=== PATIENT | male | born 1950 | race Caucasian/White ===

== ENCOUNTER 2022-02-09 17:09 | Observation (INO) | payer MEDICARE ==
[2022-02-09] MEDS ORDERED: Dextrose 5%/Water IV Soln. 1000 ML 1,000 ML IV SCH (17:30)
[2022-02-09 18:53] LABS: CHLORIDE 100 mmol/L (98-107); Carbon Dioxide 23 mmol/L (22-30); Potassium 3.9 mmol/L (3.5-5.1)
[2022-02-09 19:27] LABS: INFLUENZA A NEGATIVE (NEGATIVE); INFLUENZA B NEGATIVE (NEGATIVE); RESPIRATORY SYNCTIAL VIRUS NEGATIVE (Negative); SARS-CoV-2 Xpert Express NEGATIVE (NEGATIVE)
[2022-02-09 19:31] LABS: ANION GAP 13.7 MEQ/L (5-15); BLOOD UREA NITROGEN 19 mg/dL (9-20); Calcium 8.8 mg/dL (8.4-10.2); Creatinine 1 0.77 mg/dL (0.66-1.25); EST GLOMERULAR FILTRATION RATE > 60.0 ML/MIN; Glucose 211 mg/dL (74-106)
[2022-02-09 19:39] LABS: SODIUM 132 mmol/L (137-145)
[2022-02-09 22:14] LABS: POTASSIUM, URINE RANDOM 13.1 mmol/L
[2022-02-09] MEDS: HUMALOG SQ PRN (22:54)
[2022-02-09] MEDS: Neurontin PO SCH (22:55)
[2022-02-09] MEDS: Flomax 0.4 MG PO SCH (22:55)
[2022-02-10 01:53] LABS: ANION GAP 11.8 MEQ/L (5-15); BLOOD UREA NITROGEN 17 mg/dL (9-20); CHLORIDE 102 mmol/L (98-107); Calcium 8.8 mg/dL (8.4-10.2); Carbon Dioxide 25 mmol/L (22-30); Creatinine 1 0.77 mg/dL (0.66-1.25); EST GLOMERULAR FILTRATION RATE > 60.0 ML/MIN; Glucose 147 mg/dL (74-106); Potassium 3.8 mmol/L (3.5-5.1); SODIUM 135 mmol/L (137-145)
[2022-02-10 05:45] LABS: Absolute Neutrophil Ct (ANC) 4.19 x10^3/uL (1.4-6.9); Basophil (Absolute #) 0.03 x10^3/uL (0-0.4); Eosinophil % 4.8 % (0.00-5.0); Eosinophil (Absolute #) 0.31 x10^3/uL (0-0.5); Hematocrit 38.6 % (42-50); Hemoglobin 12.9 g/dL (12.5-18.0); Lymphocyte (Absolute #) 1.37 x10^3/uL (1.0-4.6); Lymphocytes % 21.3 % (24.0-44.0); Mean Corpuscular Hemoglobin 30.1 pg (26-32); Mean Corpuscular Hgb Concent. 33.4 g/dL (32-36); Mean Platelet Volume 9.9 fL (7.5-11.0); Monocyte (Absolute #) 0.49 x10^3/uL (0.0-1.3); Monocytes % 7.6 % (0.0-12.0); Neutrophil % 65.2 % (36.0-66.0); Platelet Count 176 x10^3/uL (150-450); Red Blood Count 4.29 x10^6/uL (4.1-5.6); Red Cell Distribution Width 14.6 % (11.5-14.0); White Blood Count 6.4 x10^3/uL (4.0-10.5)
[2022-02-10 06:14] LABS: ANION GAP 10.6 MEQ/L (5-15); BLOOD UREA NITROGEN 15 mg/dL (9-20); CHLORIDE 100 mmol/L (98-107); Calcium 8.7 mg/dL (8.4-10.2); Carbon Dioxide 28 mmol/L (22-30); Creatinine 1 0.85 mg/dL (0.66-1.25); EST GLOMERULAR FILTRATION RATE > 60.0 ML/MIN; Glucose 177 mg/dL (74-106); Potassium 3.9 mmol/L (3.5-5.1); SODIUM 135 mmol/L (137-145)
[2022-02-10] MEDS: Neurontin PO SCH (08:12)
[2022-02-10] MEDS: HUMALOG SQ PRN (08:12)
[2022-02-10] MEDS: Flomax 0.4 MG PO SCH (08:12)
--- NOTE | 2022-02-10 09:13 | PCM.HP.ADD ---
Addendum to History & Physical - History & Physical Addendum Addendum to History & Physical: This certifies that the History & Physical in the electronic chart reflects the current health status of the patient. If there are changes in the H&P these changes/exceptions are listed as follows. His Na was 155 - admitted for evaluation and treatment.
--- NOTE | 2022-02-10 09:17 | PCM.DS ---
Discharge Summary Date of Admission: 02/09/22 18:01 Admitting Physician: ELIA DIANA Primary Care Provider: ELIA DIANA Allergies Allergies No Known Drug Allergies Allergy (Verified 10/10/15 06:08) Hospital Summary - Hospital Course Hospital Course: Pt is 71 yo male with DM admitted directly for hypernatremia. He was asymptomatic. He was admitted on D5W at 150mL/hr and his sodium corrected quickly. He is feeling fine this morning. Caleb po well. Will be discharged to home. His Urine and serum osmolality are pending. Will f/u with me in 1 week an d get BMP in 2 days. - Vitals & Intake/Output Vital Signs: Vital Signs Temperature 97.4 F 02/10/22 07:24 Pulse Rate 61 02/10/22 07:24 Respiratory Rate 16 02/10/22 07:24 Blood Pressure 128/7 02/10/22 07:24 O2 Sat by Pulse Oximetry 95 02/10/22 07:24 Intake & Output: Intake & Output 02/07/22 02/08/22 02/09/22 02/10/22 11:59 11:59 11:59 11:59 Intake Total 360 Balance 360 Weight 131 kg - Lab Result Diagrams: 02/10/22 05:20 02/10/22 05:20 Lab Results-Last 24 Hrs: Lab Results-Last 24 Hours 02/09/22 02/09/22 02/09/22 Range/Units 18:35 18:35 21:30 WBC (4.0-10.5) x10^3/uL RBC (4.1-5.6) x10^6/uL Hgb (12.5-18.0) g/dL Hct (42-50) % MCV (78-100) fL MCH (26-32) pg MCHC (32-36) g/dL RDW (11.5-14.0) % Plt Count (150-450) x10^3/uL MPV (7.5-11.0) fL Gran % (36.0-66.0) % Immature Gran % (Auto) (0.00-0.4) % Nucleat RBC Rel Count (0.00-0.1) % Eos # (Auto) (0-0.5) x10^3/uL Immature Gran # (Auto) (0.00-0.03) x10^3u/L Absolute Lymphs (auto) (1.0-4.6) x10^3/uL Absolute Monos (auto) (0.0-1.3) x10^3/uL Absolute Nucleated RBC (0.00-0.01) x10^3u/L Lymphocytes % (24.0-44.0) % Monocytes % (0.0-12.0) % Eosinophils % (0.00-5.0) % Basophils % (0.0-0.4) % Absolute Granulocytes (1.4-6.9) x10^3/uL Basophils # (0-0.4) x10^3/uL Sodium 132 L D (137-145) mmol/L Potassium 3.9 (3.5-5.1) mmol/L Chloride 100 (98-107) mmol/L Carbon Dioxide 23 (22-30) mmol/L Anion Gap 13.7 (5-15) MEQ/L BUN 19 (9-20) mg/dL Creatinine 0.77 (0.66-1.25) mg/dL Estimated GFR > 60.0 ML/MIN Glucose 211 H (74-106) mg/dL POC Glucometer (74 to 106) mg/dL Calcium 8.8 (8.4-10.2) mg/dL Urine Sodium 50 (30-90) mmol/L Urine Potassium 13.1 mmol/L Influenza Type A Ag NEGATIVE (NEGATIVE) Influenza Type B Ag NEGATIVE (NEGATIVE) RSV (PCR) NEGATIVE (Negative) SARS-CoV-2 (PCR) NEGATIVE (NEGATIVE) 02/09/22 02/10/22 02/10/22 Range/Units 21:40 01:30 05:20 WBC (4.0-10.5) x10^3/uL RBC (4.1-5.6) x10^6/uL Hgb (12.5-18.0) g/dL Hct (42-50) % MCV (78-100) fL MCH (26-32) pg MCHC (32-36) g/dL RDW (11.5-14.0) % Plt Count (150-450) x10^3/uL MPV (7.5-11.0) fL Gran % (36.0-66.0) % Immature Gran % (Auto) (0.00-0.4) % Nucleat RBC Rel Count (0.00-0.1) % Eos # (Auto) (0-0.5) x10^3/uL Immature Gran # (Auto) (0.00-0.03) x10^3u/L Absolute Lymphs (auto) (1.0-4.6) x10^3/uL Absolute Monos (auto) (0.0-1.3) x10^3/uL Absolute Nucleated RBC (0.00-0.01) x10^3u/L Lymphocytes % (24.0-44.0) % Monocytes % (0.0-12.0) % Eosinophils % (0.00-5.0) % Basophils % (0.0-0.4) % Absolute Granulocytes (1.4-6.9) x10^3/uL Basophils # (0-0.4) x10^3/uL Sodium 135 L 135 L (137-145) mmol/L Potassium 3.8 3.9 (3.5-5.1) mmol/L Chloride 102 100 (98-107) mmol/L Carbon Dioxide 25 28 (22-30) mmol/L Anion Gap 11.8 10.6 (5-15) MEQ/L BUN 17 15 (9-20) mg/dL Creatinine 0.77 0.85 (0.66-1.25) mg/dL Estimated GFR > 60.0 > 60.0 ML/MIN Glucose 147 H 177 H (74-106) mg/dL POC Glucometer 246 H (74 to 106) mg/dL Calcium 8.8 8.7 (8.4-10.2) mg/dL Urine Sodium (30-90) mmol/L Urine Potassium mmol/L Influenza Type A Ag (NEGATIVE) Influenza Type B Ag (NEGATIVE) RSV (PCR) (Negative) SARS-CoV-2 (PCR) (NEGATIVE) 02/10/22 02/10/22 Range/Units 05:20 07:03 WBC 6.4 (4.0-10.5) x10^3/uL RBC 4.29 (4.1-5.6) x10^6/uL Hgb 12.9 (12.5-18.0) g/dL Hct 38.6 L (42-50) % MCV 90.0 (78-100) fL MCH 30.1 (26-32) pg MCHC 33.4 (32-36) g/dL RDW 14.6 H (11.5-14.0) % Plt Count 176 (150-450) x10^3/uL MPV 9.9 (7.5-11.0) fL Gran % 65.2 (36.0-66.0) % Immature Gran % (Auto) 0.6 H (0.00-0.4) % Nucleat RBC Rel Count 0.0 (0.00-0.1) % Eos # (Auto) 0.31 (0-0.5) x10^3/uL Immature Gran # (Auto) 0.04 H (0.00-0.03) x10^3u/L Absolute Lymphs (auto) 1.37 (1.0-4.6) x10^3/uL Absolute Monos (auto) 0.49 (0.0-1.3) x10^3/uL Absolute Nucleated RBC 0.00 (0.00-0.01) x10^3u/L Lymphocytes % 21.3 L (24.0-44.0) % Monocytes % 7.6 (0.0-12.0) % Eosinophils % 4.8 (0.00-5.0) % Basophils % 0.5 (0.0-0.4) % Absolute Granulocytes 4.19 (1.4-6.9) x10^3/uL Basophils # 0.03 (0-0.4) x10^3/uL Sodium (137-145) mmol/L Potassium (3.5-5.1) mmol/L Chloride (98-107) mmol/L Carbon Dioxide (22-30) mmol/L Anion Gap (5-15) MEQ/L BUN (9-20) mg/dL Creatinine (0.66-1.25) mg/dL Estimated GFR ML/MIN Glucose (74-106) mg/dL POC Glucometer 177 H (74 to 106) mg/dL Calcium (8.4-10.2) mg/dL Urine Sodium (30-90) mmol/L Urine Potassium mmol/L Influenza Type A Ag (NEGATIVE) Influenza Type B Ag (NEGATIVE) RSV (PCR) (Negative) SARS-CoV-2 (PCR) (NEGATIVE) Micro Results-Entire Visit: Accuchecks Date 02/10/22 Date 02/09/22 Time 07:22 Time 22:10 - Procedures and Test Procedures and Tests throughout Hospitalization: Therapy Orders & Screens 02/09/22 22:18 BiPap/CPAP ROUTINE Comment: +10 PER HOME USE Diagnosis: none Discharge Exam General Appearance: no apparent distress, alert, obese Neurologic Exam: oriented x 3, cooperative Eye Exam: eyes nml inspection Ears, Nose, Throat Exam: moist mucous membranes Neck Exam: normal inspection Respiratory Exam: normal breath sounds, lungs clear, No crackles/rales, No rhonchi, No wheezing Cardiovascular Exam: regular rate/rhythm, normal heart sounds, No murmur Gastrointestinal/Abdomen Exam: soft, normal bowel sounds, No tenderness, No mass, No guarding, No rebound Back Exam: normal inspection, No rash Extremity Exam: No swelling Skin Exam: normal color, warm, dry, other (R proximal lateral thigh there is an approx 3x3cm lesion, erythematous with some yellow crusting) Final Diagnosis/Problem List - Final Discharge Diagnosis/Problem (1) Hypernatremia Current Visit: Yes Status: Acute Assessment & Plan: resolved. will continue workup outpatient and recheck in 2d Code(s): E87.0 - HYPEROSMOLALITY AND HYPERNATREMIA (2) Tinea corporis Current Visit: Yes Status: Chronic Assessment & Plan: lesion has been there x 1 mo, it is tender. Code(s): B35.4 - TINEA CORPORIS - Discharge Disposition: Home, Self-Care Condition: Good Prescriptions: New Ketoconazole Cream [Nizoral CREAM] 1 gm TOP BID 30 Days #1 unit Continue Aspirin 81 gm Chew [Baby Aspirin 81 mg Chew] 81 mg PO DAILY Glyburide 5 mg [Micronase 5 MG] 5 mg PO DAILY Potassium Citrate [Potassium Citrate ER] 10 meq PO TID Losartan/Hydrochlorothiazide [Losartan-Hctz 50-12.5 mg Tab] 100 mg PO DAILY Atorvastatin Calcium [Lipitor] 40 mg PO DAILY Insulin Glargine [Lantus Insulin] 30 unit SQ BID Gabapentin [Neurontin ] 100 mg PO TID Tamsulosin HCl 0.4 mg [Flomax 0.4 MG] PO BID Outpatient Orders: BMP Time Frame: 2 Days, Facility: [facility], Location: LABORATORY Instructions: Sodium Test Follow up with: ELIA DIANA [Primary Care Provider] - 02/16/22 11:15 am Forms: Discharge Instructions
[2022-02-10] MEDS ORDERED: Micronase 5 MG PO SCH (10:00)
[2022-02-10] MEDS ORDERED: NON-FORMULARY ITEM (Losartan/Hydrochlorothiazide [Losartan-Hctz 50-12.5 Mg Tab] 1 EACH Tab PO SCH (10:00)
[2022-02-10] MEDS ORDERED: Cozaar 50 MG PO SCH (10:00)
[2022-02-10] MEDS ORDERED: Nizoral CREAM TOP SCH (10:00)
[2022-02-10] MEDS ORDERED: hydroDIURIL 25 MG PO SCH (10:00)
[2022-02-10] MEDS ORDERED: ECOTRIN 81 MG PO SCH (10:00)
[2022-02-10] MEDS ORDERED: Lantus Insulin SQ SCH (10:00)
[2022-02-10] MEDS ORDERED: ZOCOR 20MG PO SCH (10:00)
[2022-02-10] MEDS ORDERED: LIPITOR 40MG PO SCH (10:00)
[2022-02-10] MEDS ORDERED: POTASSIUM CITRATE 5 MEQ PO SCH (10:00)
[2022-02-10 12:32] VITALS: BP 127/47; PULSE 68; O2SAT 96
== END 2022-02-10 14:39 | disposition home or self-care (01) ==
LOC: MED SURG 18:01
PROVIDERS: ADMIT Family Medicine; ATTEND Family Medicine
DX: E87.0 Hyperosmolality and hypernatremia (principal); B35.4 Tinea corporis; I10 Essential (primary) hypertension; E11.9 Type 2 diabetes mellitus without complications; E78.5 Hyperlipidemia, unspecified; Z79.899 Other long term (current) drug therapy; Z20.828 Contact with and (suspected) exposure to other viral communicable diseases
CPT/HCPCS: 0241U; 36415; 80048; 82947; 83930; 83935; 84133; 84300; 85025; 94660; 94760; J1817; A9270-GY

== ENCOUNTER 2023-06-30 06:06 | Day surgery (SDC) | payer MEDICARE ==
[2023-06-30 06:26] VITALS: RESP 18
[2023-06-30] MEDS: Lactated Ringers 1,000 ML IV SCH (06:49)
[2023-06-30] MEDS ORDERED: DIPRIVAN 200 MG/20 ML IV ONE ×2 (07:57→08:20)
--- NOTE | 2023-06-30 09:00 | OP ---
SURGERY DATE/TIME: 06/30/2023813 PREOPERATIVE DIAGNOSIS: Screening colonoscopy. POSTOPERATIVE DIAGNOSIS: Normal colon. PROCEDURE: Colonoscopy. SURGEON: Alexys Denney M.D. ANESTHESIA: MAC. QUANTITATIVE BLOOD LOSS: None. SPECIMENS: None. DESCRIPTION OF PROCEDURE: After informed written consent was obtained, the patient was taken to the endoscopy suite. He was placed in left lateral decubitus position and anesthesia was titrated to desired level of consciousness. Digital rectal exam showed normal sphincter tone and no internal lesions. The scope was inserted into the rectum and sequentially the entire colonic mucosa was traversed. The level of cecum was reached and verified with direct visualization of the ileocecal valve. Upon withdrawal careful mucosal inspection revealed no gross abnormalities. Prior to withdrawal retroflexion was performed and showed no internal lesions. The scope was removed. The patient was transferred to the recovery room in good condition.
[2023-06-30 09:11] VITALS: TEMP 96.8; O2SAT 98
[2023-06-30 09:20] VITALS: BP 141/79; PULSE 58
== END 2023-06-30 09:34 | disposition home or self-care (01) ==
LOC: SDC 06:06
PROVIDERS: ATTEND Family Medicine
DX: Z12.11 Encounter for screening for malignant neoplasm of colon (principal); E11.9 Type 2 diabetes mellitus without complications
CPT/HCPCS: 82947; G0121; J2704